=== PATIENT | female | born 1940 | race Caucasian/White ===

== ENCOUNTER → 2016-10-15 | Outpatient (CLI) | payer MEDICARE, BC, MEDICAID ==
[~2016-10-15] MED LIST: ALDACTONE25 MG PO; ASPERCREME90 GM/TUBE TOP; BYSTOLIC2.5 MG PO; CELEXA20 MG PO; COUMADIN ** IA5 MG PO; COUMADIN7.5 MG PO; DULCOLAX10 MG R; FLORASTOR250 MG PO; KCL UD LIQ20 MEQ/15 PO; KEFLEX500 MG PO; LASIX20 MG PO; LASIX40 MG PO; LEVOTHYROXINE100 MCG PO; MILK OF MA400 MG/5 M PO; TYLENOL325 MG PO; ZOFRAN4 MG PO
[2016-10-15 11:03] LABS: ANION GAP 15.8 (10.0-19.0); BLOOD UREA NITROGEN 23 mg/dL (6-24); CALCIUM 8.9 mg/dL (8.5-10.5); CHLORIDE 101 mMol/L (96-110); CO2 25 mMol/L (22-32); CREATININE 0.9 mg/dL (0.5-1.1); ESTIMATED GFR (MDRD EQUATION) > 60; POTASSIUM 3.8 mMol/L (3.7-5.1); SODIUM 138 mMol/L (135-145)
== END | disposition disaster alternative care site (69) ==
LOC: LJOHN2 10:44
PROVIDERS: Family Medicine
DX: I50.22 Chronic systolic (congestive) heart failure (principal); I10 Essential (primary) hypertension; R60.0 Localized edema

== ENCOUNTER → 2016-10-20 | Outpatient (CLI) | payer MEDICARE, BC, MEDICAID ==
[2016-10-20 10:03] LABS: INR - (THERAPEUTIC) 2.2 (0.9-1.1); PROTIME 24.6 SECONDS (9.6-11.1)
== END | disposition disaster alternative care site (69) ==
LOC: LJOHN2 10-19 17:07
PROVIDERS: Family Medicine
DX: I48.2 Chronic atrial fibrillation (principal)

== ENCOUNTER → 2016-11-17 | Outpatient (CLI) | payer MEDICARE, BC, MEDICAID ==
[2016-11-17 09:42] LABS: INR - (THERAPEUTIC) 2.1 (0.9-1.1); PROTIME 23.1 SECONDS (9.6-11.1)
== END | disposition disaster alternative care site (69) ==
LOC: LJOHN2 11-16 12:02
PROVIDERS: Family Medicine
DX: I48.2 Chronic atrial fibrillation (principal)

== ENCOUNTER → 2016-12-15 | Outpatient (CLI) | payer MEDICARE, BC, MEDICAID ==
[2016-12-15 10:11] LABS: INR - (THERAPEUTIC) 2.28 (0.92-1.07); PROTIME 24.1 SECONDS (9.8-11.4)
== END ==
LOC: LJOHN2 12-14 13:49
PROVIDERS: Family Medicine
DX: I48.2 Chronic atrial fibrillation (principal)

== ENCOUNTER → 2017-01-19 | Outpatient (CLI) | payer MEDICARE, BC, MEDICAID ==
[2017-01-19 09:56] LABS: PROTIME 19.2 SECONDS (9.8-11.4)
[2017-01-19 10:01] LABS: INR - (THERAPEUTIC) 1.82 (0.92-1.07)
== END | disposition disaster alternative care site (69) ==
LOC: LJOHN2 01-18 16:34
PROVIDERS: Family Medicine
DX: I48.91 Unspecified atrial fibrillation (principal)

== ENCOUNTER → 2017-02-02 | Outpatient (CLI) | payer MEDICARE, BC, MEDICAID ==
[2017-02-02 08:17] LABS: INR - (THERAPEUTIC) 3.21 (0.92-1.07); PROTIME 34.1 SECONDS (9.8-11.4)
== END | disposition disaster alternative care site (69) ==
LOC: LJOHN2 08:07
PROVIDERS: Family Medicine
DX: I48.91 Unspecified atrial fibrillation (principal); Z79.01 Long term (current) use of anticoagulants

== ENCOUNTER → 2017-02-12 | Outpatient (CLI) | payer MEDICARE, BC, MEDICAID ==
[2017-02-12 07:49] LABS: INR - (THERAPEUTIC) 2.36 (0.92-1.07)
== END | disposition disaster alternative care site (69) ==
LOC: LJOHN2 07:40
PROVIDERS: Family Medicine
DX: I48.91 Unspecified atrial fibrillation (principal); Z79.01 Long term (current) use of anticoagulants

== ENCOUNTER → 2017-03-16 | Outpatient (CLI) | payer MEDICARE, BC, MEDICAID ==
[2017-03-16 09:34] LABS: INR - (THERAPEUTIC) 1.73 (0.92-1.07); PROTIME 18.3 SECONDS (9.8-11.4)
== END ==
LOC: LJOHN2 03-15 12:05
PROVIDERS: Family Medicine
DX: I48.2 Chronic atrial fibrillation (principal)

== ENCOUNTER → 2017-03-23 | Outpatient (CLI) | payer MEDICARE, BC, MEDICAID ==
[2017-03-23 07:53] LABS: INR - (THERAPEUTIC) 2.31 (0.92-1.07); PROTIME 24.5 SECONDS (9.8-11.4)
== END ==
LOC: LJOHN2 07:34
PROVIDERS: Family Medicine
DX: I48.2 Chronic atrial fibrillation (principal)

== ENCOUNTER → 2017-04-20 | Outpatient (CLI) | payer MEDICARE, BC, MEDICAID ==
[2017-04-20 10:26] LABS: INR - (THERAPEUTIC) 2.55 (0.92-1.07)
== END ==
LOC: LJOHN2 07:32
PROVIDERS: Family Medicine
DX: I48.2 Chronic atrial fibrillation (principal)

== ENCOUNTER → 2017-04-23 | Outpatient (CLI) | payer MEDICARE, BC, MEDICAID ==
[2017-04-23 06:47] LABS: INR - (THERAPEUTIC) 2.43 (0.92-1.07); PROTIME 25.7 SECONDS (9.8-11.4)
== END ==
LOC: LJOHN2 06:36
PROVIDERS: Family Medicine
DX: I48.2 Chronic atrial fibrillation (principal)